=== PATIENT | female | born 1955 | race Hispanic/Latino ===

== ENCOUNTER 2024-01-24 11:06 | Emergency (ER) | payer MEDICARE ==
[2024-01-24] MEDS ORDERED: TYLENOL325 MG PO (11:33)
[2024-01-24] MEDS ORDERED: IBUPROFEN200 MG PO (11:33)
[2024-01-24] MEDS ORDERED: ULTRAM 50MG50 MG PO (11:33)
[2024-01-24] MEDS ORDERED: ONDANSETRON ODT4 MG PO (11:35)
[2024-01-24] MEDS: ONDANSETRON HCL 4 MG ORAL DISINTEGRATING TAB PO ONE (12:09)
[2024-01-24 12:44] VITALS: PULSE 69; RESP 16; TEMP 97.8
[2024-01-24 12:53] VITALS: BP 125/72; PULSE 69; RESP 16; TEMP 97.8; O2SAT 96
== END 2024-01-24 12:50 | disposition home or self-care (01) ==
LOC: FSED 11:11
DX: S92.355A Nondisplaced fracture of fifth metatarsal bone, left foot, initial encounter for closed fracture (principal); S93.692A Other sprain of left foot, initial encounter; W01.0XXA Fall on same level from slipping, tripping and stumbling without subsequent striking against object, initial encounter; Y93.01 Activity, walking, marching and hiking; Y92.89 Other specified places as the place of occurrence of the external cause; I10 Essential (primary) hypertension; E78.5 Hyperlipidemia, unspecified
CPT/HCPCS: 73610; 73630; 99284; Q0162